=== PATIENT | male | born 1940 | race African-American/Black ===

== ENCOUNTER 2024-01-14 20:46 | Inpatient (IN) | payer MEDICARE, OTHER ==
[~2024-01-14] VITALS: Ht 175.3 cm; Wt 83.9 kg
[2024-01-14 22:13] LABS: BASOPHILS # (AUTO) 0.1 K/UL (0.0-0.2); BASOPHILS % (AUTO) 0.9 % (0.0-2.0); EOSINOPHILS # (AUTO) 0.2 K/uL (0.0-0.7); EOSINOPHILS % (AUTO) 3.2 % (0.0-7.0); HEMATOCRIT 41.6 % (36.7-47.1); HEMOGLOBIN 13.1 g/dL (12.5-16.3); LYMPHOCYTES # (AUTO) 1.7 K/uL (0.8-4.8); LYMPHOCYTES % (AUTO) 25.2 % (20.5-51.5); MEAN CORPUSCULAR HEMOGLOBIN 26.7 uug (23.8-33.4); MEAN CORPUSCULAR HGB CONC 32 g/dL (32.5-36.3); MEAN CORPUSCULAR VOLUME 84.8 fL (73.0-96.2); MONOCYTES # (AUTO) 0.7 K/uL (0.1-1.30); MONOCYTES % (AUTO) 9.7 % (0.0-11.0); NEUTROPHILS # (AUTO) 4.2 K/uL (1.8-8.9); PLATELET COUNT (AUTO) 233 K/uL (152-348); RED CELL DISTRIBUTION WIDTH 16.6 % (12.1-16.2); WHITE BLOOD COUNT (AUTO) 6.9 K/uL (3.6-10.2)
[2024-01-14 22:18] LABS: DIFFERENTIAL COMMENT 1
[2024-01-14 22:23] LABS: AMMONIA 26 umol/L (11-32)
[2024-01-14] MEDS: IV NORMAL SALINE 500 ML BAG IV ONE (22:26)
[2024-01-14 22:27] LABS: ALBUMIN 3.3 g/dL (3.4-5.0); BILIRUBIN,DIRECT 0.1 mg/dL (0.0-0.2); CALCIUM 10.2 mg/dL (8.5-10.1); CARBON DIOXIDE 23 mmol/L (21-32); CHLORIDE 103 mmol/L (98-107); CREATININE 1.1 mg/dL (0.6-1.3); ETHANOL < 3 MG/DL (0-10); GLUCOSE 173 mg/dL (74-106); POTASSIUM 4.7 mmol/L (3.5-5.1); SODIUM SERUM 138 mmol/L (136-145); UREA NITROGEN, BLOOD 13 mg/dL (7-18)
[2024-01-14] MEDS ORDERED: CYAN-51 PO (22:27)
[2024-01-14] MEDS ORDERED: TICA60TA PO (22:27)
[2024-01-14] MEDS ORDERED: ASPI81TA31 PO (22:27)
[2024-01-14] MEDS ORDERED: TAMS-3 PO (22:27)
[2024-01-14] MEDS ORDERED: PRED5DRO24 RIGHTEYE (22:27)
[2024-01-14] MEDS ORDERED: FOLI1TAB27 PO (22:27)
[2024-01-14] MEDS ORDERED: LEVE500T20 PO (22:27)
[2024-01-14] MEDS ORDERED: METF-442 PO (22:27)
[2024-01-14] MEDS ORDERED: DONE10TA44 PO (22:27)
[2024-01-14] MEDS ORDERED: ACET250T9 PO (22:27)
[2024-01-14] MEDS ORDERED: SEMA0.25 SQ (22:27)
[2024-01-14] MEDS ORDERED: CARB300C8 PO (22:27)
[2024-01-14] MEDS ORDERED: CHOL10005 PO (22:27)
[2024-01-14] MEDS ORDERED: ROSU40TA PO (22:27)
[2024-01-14] MEDS ORDERED: METO-356 PO (22:27)
[2024-01-14] MEDS ORDERED: MEMA10TA PO (22:27)
[2024-01-14 22:47] LABS: ALANINE AMINOTRANSFERASE 20 U/L (16-63); ALKALINE PHOSPHATASE 171 U/L (50-136); ASPARTATE AMINOTRANSFERASE 15 U/L (15-37); BILIRUBIN,TOTAL 0.2 mg/dL (0.2-1.0); TOTAL PROTEIN, SERUM 8.3 g/dL (6.4-8.2)
[2024-01-14 23:01] LABS: THYROID STIMULATING HORMONE 2.225 mIU/mL (0.358-3.740)
[2024-01-14 23:09] LABS: *BILIRUBIN,URIN NEGATIVE (NEGATIVE); *BLOOD, URINE NEGATIVE (NEGATIVE); *CLARITY,URINE CLEAR (CLEAR); *COLOR,URINE YELLOW (YELLOW); *KETONES,URINE NEGATIVE (NEGATIVE); *PROTEIN,URINE TRACE (NEGATIVE); LEUKOCYTE ESTERASE ,URINE NEGATIVE (NEGATIVE); NITRITE, URINE NEGATIVE (NEGATIVE); UGLUCOSE NEGATIVE (NEGATIVE)
[2024-01-14 23:23] LABS: *AMPHETAMINE, URINE NEGATIVE (NEGATIVE); *BARBITURATE, URINE NEGATIVE (NEGATIVE); *BENZODIAZEPINE, URINE NEGATIVE (NEGATIVE); *CANNABINOID, URINE NEGATIVE (NEGATIVE); *COCCAINE, URINE NEGATIVE (NEGATIVE); *OPIATE, URINE NEGATIVE (NEGATIVE); *PHENCYCLIDINE SCREEN,URINE NEGATIVE (NEGATIVE); FENTANYL, URINE NEGATIVE (NEGATIVE)
[2024-01-15 00:04] LABS: BACTERIA,URINE FEW /HPF (NONE SEEN); RBC,URINE 0-3 /HPF (0-3); SQUAMOUS EPITHELIAL CELL,UR FEW /HPF (NONE SEEN); WBC,URINE NONE SEEN /HPF (0-3)
[2024-01-15] MEDS ORDERED: REMEDY ESSENTIAL ZINC PASTE 113 GM TP PRN (01:30)
[2024-01-15] MEDS ORDERED: DEXTROSE 50% 50 ML DISP.SYRIN IV PRN (01:30)
[2024-01-15] MEDS ORDERED: ONDANSETRON 4 MG/2 ML VIAL IV PRN (01:30)
[2024-01-15] MEDS ORDERED: ACETAMINOPHEN 325 MG TABLET PO PRN (01:30)
[2024-01-15] MEDS ORDERED: MAGNESIUM HYDROXIDE 30 ML LIQUID UDC PO PRN (01:30)
[2024-01-15 02:30] VITALS: BP 148/79; TEMP 98.4; O2SAT 94
[2024-01-15 06:27] VITALS: BP 116/50; TEMP 98.4; O2SAT 96
[2024-01-15] MEDS: BLOOD SUGAR DIAGNOSTIC 1 EACH STRIP VI SCH (06:58)
[2024-01-15 08:03] LABS: BASOPHILS # (AUTO) 0.1 K/UL (0.0-0.2); BASOPHILS % (AUTO) 1.1 % (0.0-2.0); EOSINOPHILS # (AUTO) 0.2 K/uL (0.0-0.7); EOSINOPHILS % (AUTO) 3.7 % (0.0-7.0); HEMATOCRIT 39.3 % (36.7-47.1); HEMOGLOBIN 12.6 g/dL (12.5-16.3); LYMPHOCYTES # (AUTO) 1.9 K/uL (0.8-4.8); LYMPHOCYTES % (AUTO) 36.7 % (20.5-51.5); MEAN CORPUSCULAR HEMOGLOBIN 27.2 uug (23.8-33.4); MEAN CORPUSCULAR HGB CONC 32 g/dL (32.5-36.3); MEAN CORPUSCULAR VOLUME 84.6 fL (73.0-96.2); MONOCYTES # (AUTO) 0.7 K/uL (0.1-1.30); MONOCYTES % (AUTO) 12.4 % (0.0-11.0); NEUTROPHILS # (AUTO) 2.4 K/uL (1.8-8.9); NEUTROPHILS % (AUTO) 46.1 % (38.5-71.5); PLATELET COUNT (AUTO) 217 K/uL (152-348); RED BLOOD CELL COUNT(AUTO) 4.65 MIL/uL (4.06-5.63); RED CELL DISTRIBUTION WIDTH 16.5 % (12.1-16.2); WHITE BLOOD COUNT (AUTO) 5.3 K/uL (3.6-10.2)
[2024-01-15 08:25] LABS: DIFFERENTIAL COMMENT 1
[2024-01-15 08:31] LABS: MAGNESIUM 1.8 mg/dL (1.8-2.4); PHOSPHOROUS 3.2 mg/dL (2.5-4.9)
[2024-01-15 08:32] LABS: CALCIUM 9.9 mg/dL (8.5-10.1); CARBON DIOXIDE 22 mmol/L (21-32); CHLORIDE 105 mmol/L (98-107); CREATININE 1.1 mg/dL (0.6-1.3); GLUCOSE 180 mg/dL (74-106); POTASSIUM 3.6 mmol/L (3.5-5.1); SODIUM SERUM 138 mmol/L (136-145); UREA NITROGEN, BLOOD 13 mg/dL (7-18)
[2024-01-15] MEDS: CYANOCOBALAMIN 1,000 MCG TABLET PO SCH (08:50)
[2024-01-15] MEDS: MEMANTINE HCL 5 MG TABLET PO SCH (08:50)
[2024-01-15] MEDS: METOPROLOL SUCCINATE XL 25 MG TAB.SR.24H PO SCH (08:50)
[2024-01-15] MEDS: ASPIRIN 81 MG TAB.CHEW PO SCH (08:50)
[2024-01-15] MEDS: CHOLECALCIFEROL 1,000 UNIT TABLET PO SCH (08:50)
[2024-01-15] MEDS ORDERED: TAMSULOSIN HCL 0.4 MG CAP.SR.24H PO SCH (09:00)
[2024-01-15] MEDS ORDERED: EYE OP SCH (09:00)
[2024-01-15] MEDS ORDERED: FOLIC ACID 1 MG TABLET PO SCH (09:00)
[2024-01-15] MEDS ORDERED: CARBAMAZEPINE 300 MG PO SCH (09:00)
[2024-01-15] MEDS ORDERED: MEMANTINE HCL 10 MG TABLET PO SCH (09:00)
[2024-01-15] MEDS ORDERED: PREDNISOLONE ACET 1% OP SCH (09:00)
[2024-01-15] MEDS ORDERED: TICAGRELOR 60 MG TABLET PO SCH ×2 (09:00)
[2024-01-15] MEDS ORDERED: ACETAzolamide 250 MG TABLET PO SCH (09:00)
[2024-01-15] MEDS ORDERED: levETIRAcetam 500 MG TABLET PO SCH (09:00)
[2024-01-15] MEDS: FOLIC ACID 1 MG TABLET PO SCH (11:38)
[2024-01-15 11:54] VITALS: BP 129/62; TEMP 97.9; O2SAT 99
[2024-01-15] MEDS: ACETAzolamide 250 MG TABLET PO SCH (12:40)
[2024-01-15] MEDS: levETIRAcetam 500 MG TABLET PO SCH (12:41)
[2024-01-15] MEDS: INSULIN REGULAR, HUMAN 1000 UNIT/10 ML VIAL SQ PRN (12:56)
[2024-01-15 15:54] VITALS: BP 119/72; TEMP 97.7; O2SAT 99
[2024-01-15] MEDS: BRILINTA 60 MG PO SCH (17:53)
[2024-01-15] MEDS: prednisoLONE ACET 1% OPHT DROP 5 ML BOTTLE RIGHTEYE SCH (17:54)
[2024-01-15] MEDS: CARBAMAZEPINE 300 MG PO SCH (17:54)
[2024-01-15 21:00] VITALS: TEMP 97.6
[2024-01-15] MEDS: DONEPEZIL 10 MG TABLET PO SCH (22:34)
[2024-01-15] MEDS: ATORVASTATIN 40 MG TABLET PO SCH (22:34)
[2024-01-15] MEDS: TAMSULOSIN HCL 0.4 MG CAP.SR.24H PO SCH (22:34)
[2024-01-16 04:00] VITALS: TEMP 98
[2024-01-16 07:55] LABS: BASOPHILS # (AUTO) 0.1 K/UL (0.0-0.2); BASOPHILS % (AUTO) 0.9 % (0.0-2.0); EOSINOPHILS # (AUTO) 0.2 K/uL (0.0-0.7); EOSINOPHILS % (AUTO) 3.9 % (0.0-7.0); HEMATOCRIT 40.5 % (36.7-47.1); LYMPHOCYTES # (AUTO) 1.9 K/uL (0.8-4.8); LYMPHOCYTES % (AUTO) 34.3 % (20.5-51.5); MEAN CORPUSCULAR HGB CONC 32 g/dL (32.5-36.3); MEAN CORPUSCULAR VOLUME 83.9 fL (73.0-96.2); MONOCYTES # (AUTO) 0.8 K/uL (0.1-1.30); MONOCYTES % (AUTO) 13.5 % (0.0-11.0); NEUTROPHILS # (AUTO) 2.6 K/uL (1.8-8.9); NEUTROPHILS % (AUTO) 47.4 % (38.5-71.5); PLATELET COUNT (AUTO) 230 K/uL (152-348); RED BLOOD CELL COUNT(AUTO) 4.82 MIL/uL (4.06-5.63); RED CELL DISTRIBUTION WIDTH 16.2 % (12.1-16.2); WHITE BLOOD COUNT (AUTO) 5.6 K/uL (3.6-10.2)
[2024-01-16 08:04] LABS: DIFFERENTIAL COMMENT 1
[2024-01-16 08:14] LABS: ALANINE AMINOTRANSFERASE 17 U/L (16-63); ALKALINE PHOSPHATASE 169 U/L (50-136); ASPARTATE AMINOTRANSFERASE < 5 U/L (15-37); BILIRUBIN,TOTAL 0.5 mg/dL (0.2-1.0); CALCIUM 9.8 mg/dL (8.5-10.1); CARBON DIOXIDE 21 mmol/L (21-32); CHLORIDE 103 mmol/L (98-107); CREATININE 1.1 mg/dL (0.6-1.3); GLUCOSE 166 mg/dL (74-106); MAGNESIUM 1.8 mg/dL (1.8-2.4); POTASSIUM 3.9 mmol/L (3.5-5.1); SODIUM SERUM 136 mmol/L (136-145); UREA NITROGEN, BLOOD 16 mg/dL (7-18)
[2024-01-16 08:34] LABS: IRON, SERUM 75 ug/dL (50-175)
[2024-01-16 09:34] LABS: CHOLESTEROL 116 mg/dL (<200); HDL CHOLESTEROL 46 mg/dL (40-60); TRIGLYCERIDES 106 MG/DL (30-150)
[2024-01-16 10:57] VITALS: BP 114/76; TEMP 97.6; O2SAT 96
[2024-01-16 16:15] VITALS: BP 119/58; TEMP 97.6; O2SAT 99
[2024-01-16] MEDS ORDERED: ASPI-1101 PO (16:28)
[2024-01-16] MEDS ORDERED: TAMS-3 PO (16:28)
[2024-01-16] MEDS ORDERED: THIA100T74 PO (16:28)
[2024-01-16] MEDS ORDERED: ATOR20TA PO (16:28)
[2024-01-16] MEDS ORDERED: LEVE500T9 PO (16:28)
[2024-01-17] MEDS ORDERED: ATOR80TA PO (10:05)
[2024-01-17] MEDS ORDERED: ACET325T53 PO (10:05)
[2024-01-17] MEDS ORDERED: BLOO-360 VI (10:05)
[2024-01-17] MEDS ORDERED: CYAN100096 PO (10:19)
[2024-01-17] MEDS ORDERED: FOLI1TAB94 PO (10:19)
[2024-01-17] MEDS ORDERED: MAGN400O6 PO (10:19)
[2024-01-17] MEDS ORDERED: DEXT50DI8 IV (10:19)
[2024-01-17] MEDS ORDERED: INSU100V28 SQ (10:19)
[2024-01-17] MEDS ORDERED: ONDA4VIA52 IV (10:19)
== END 2024-01-16 18:30 | DRG 69 ==
LOC: ER 20:48 → MEDSURG3 01-15 01:00
PROVIDERS: ATTEND Internal Medicine
DX: G45.9 Transient cerebral ischemic attack, unspecified (principal); J96.01 Acute respiratory failure with hypoxia; G93.49 Other encephalopathy; F01.518 Vascular dementia, unspecified severity, with other behavioral disturbance; D68.59 Other primary thrombophilia; E86.0 Dehydration; G40.909 Epilepsy, unspecified, not intractable, without status epilepticus; I10 Essential (primary) hypertension; I25.2 Old myocardial infarction; I25.10 Atherosclerotic heart disease of native coronary artery without angina pectoris; N40.0 Benign prostatic hyperplasia without lower urinary tract symptoms; M15.9 Polyosteoarthritis, unspecified; E11.65 Type 2 diabetes mellitus with hyperglycemia; Z79.84 Long term (current) use of oral hypoglycemic drugs; Z74.09 Other reduced mobility; Z79.899 Other long term (current) drug therapy; E66.9 Obesity, unspecified; Z68.27 Body mass index [BMI] 27.0-27.9, adult; I71.40 Abdominal aortic aneurysm, without rupture, unspecified; E11.51 Type 2 diabetes mellitus with diabetic peripheral angiopathy without gangrene; E83.52 Hypercalcemia; E88.09 Other disorders of plasma-protein metabolism, not elsewhere classified; E78.5 Hyperlipidemia, unspecified; Z87.448 Personal history of other diseases of urinary system; Z87.891 Personal history of nicotine dependence; J44.9 Chronic obstructive pulmonary disease, unspecified; Z86.73 Personal history of transient ischemic attack (TIA), and cerebral infarction without residual deficits
CPT/HCPCS: 36415; 70450; 71045; 82652; 83550; 83735; 84100; 84443; 85025; 85730; 87040; 93005; A4606; A4663; G0378; G0480; J1815; J2650; J7040; J8499

== ENCOUNTER 2024-01-16 20:04 | Inpatient (IN) | payer MEDICARE, OTHER ==
[~2024-01-16] VITALS: Ht 175.3 cm; Wt 83.9 kg
[~2024-01-16 20:04] MED LIST: ACET250T9 PO; ASPI-1101 PO; ASPI81TA31 PO; ATOR20TA PO; CARB300C8 PO; CHOL10005 PO; CYAN-51 PO; DONE10TA44 PO; FOLI1TAB27 PO; LEVE500T20 PO; LEVE500T9 PO; MEMA10TA PO; METF-442 PO; METO-356 PO; PRED5DRO24 RIGHTEYE; ROSU40TA PO; SEMA0.25 SQ; TAMS-3 PO; THIA100T74 PO; TICA60TA PO
[2024-01-17] MEDS ORDERED: REMEDY ESSENTIAL ZINC PASTE 113 GM TOP PRN
[2024-01-17 06:00] VITALS: BP 112/66; TEMP 98; O2SAT 95
[2024-01-17] MEDS ORDERED: BLOO-360 VI (10:05)
[2024-01-17] MEDS ORDERED: ACET325T53 PO (10:05)
[2024-01-17] MEDS ORDERED: ATOR80TA PO (10:05)
[2024-01-17] MEDS ORDERED: MAGN400O6 PO (10:19)
[2024-01-17] MEDS ORDERED: ONDA4VIA52 IV (10:19)
[2024-01-17] MEDS ORDERED: CYAN100096 PO (10:19)
[2024-01-17] MEDS ORDERED: DEXT50DI8 IV (10:19)
[2024-01-17] MEDS ORDERED: INSU100V28 SQ (10:19)
[2024-01-17] MEDS ORDERED: FOLI1TAB94 PO (10:19)
[2024-01-17 16:37] VITALS: BP 104/72; TEMP 97.8; O2SAT 97
[2024-01-17 20:19] VITALS: BP 115/81; TEMP 97.8; O2SAT 98
[2024-01-17] MEDS: TAMSULOSIN HCL 0.4 MG CAP.SR.24H PO SCH (22:12)
[2024-01-17] MEDS: levETIRAcetam 500 MG TABLET PO SCH (22:13)
[2024-01-17] MEDS: DONEPEZIL 10 MG TABLET PO SCH (22:13)
[2024-01-18 05:30] VITALS: BP 126/77; TEMP 97.6; O2SAT 95
[2024-01-18] MEDS ORDERED: TICAGRELOR 60 MG TABLET PO SCH (09:00)
[2024-01-18] MEDS: METOPROLOL SUCCINATE XL 25 MG TAB.SR.24H PO SCH (09:05)
[2024-01-18] MEDS: CARBAMAZEPINE 200 MG TABLET PO SCH (09:05)
[2024-01-18] MEDS: CHOLECALCIFEROL 1,000 UNIT TABLET PO SCH (09:06)
[2024-01-18] MEDS: ASPIRIN EC 81 MG TABLET.DR PO SCH (09:06)
[2024-01-18] MEDS: ACETAzolamide 250 MG TABLET PO SCH (09:06)
[2024-01-18] MEDS: MEMANTINE HCL 10 MG TABLET PO SCH (09:06)
[2024-01-18] MEDS: BRILINTA 60 MG PO SCH (09:06)
[2024-01-18 16:11] VITALS: BP 127/98; TEMP 97.7; O2SAT 96
[2024-01-18] MEDS: CARBAMAZEPINE 300 MG PO SCH (16:53)
[2024-01-18] MEDS ORDERED: CARBAMAZEPINE 300 MG PO SCH (17:00)
[2024-01-18 20:54] VITALS: BP 126/82; TEMP 97.9; O2SAT 95
[2024-01-19 08:50] VITALS: BP 131/86; TEMP 97.9; O2SAT 86; O2SAT 96
[2024-01-19 15:43] VITALS: BP 101/63; TEMP 97.8; O2SAT 95
[2024-01-19 21:06] VITALS: BP 123/65; TEMP 97.8; O2SAT 97
[2024-01-20 05:51] VITALS: BP 102/67; TEMP 97.9; O2SAT 98
[2024-01-20 15:15] VITALS: BP 100/69; TEMP 98.4; O2SAT 99
[2024-01-20] MEDS: ACETAMINOPHEN 325 MG TABLET PO PRN (15:18)
[2024-01-20 20:36] VITALS: BP 108/60; TEMP 97.7; O2SAT 98
[2024-01-21 06:00] VITALS: BP 114/82; TEMP 97.7; O2SAT 94
[2024-01-21] MEDS: BLOOD SUGAR DIAGNOSTIC 1 EACH STRIP VI ONE (06:50)
[2024-01-21] MEDS ORDERED: METF-440 PO (10:53)
[2024-01-21] MEDS: METFORMIN HCL 500 MG TABLET PO SCH (11:17)
[2024-01-21 14:58] VITALS: BP 109/68; TEMP 97.5; O2SAT 92
[2024-01-21 20:39] VITALS: BP 107/63; TEMP 97.4; O2SAT 94
[2024-01-22 05:44] VITALS: BP 127/65; TEMP 97.6; O2SAT 97
[2024-01-22 15:45] VITALS: BP 117/78; TEMP 97.4; O2SAT 95
[2024-01-22 20:00] VITALS: BP 108/67; TEMP 98.5; O2SAT 96
[2024-01-23 04:00] VITALS: BP 100/47; TEMP 98.1; O2SAT 84
[2024-01-23 15:18] VITALS: BP 110/77; TEMP 97.7; O2SAT 95
[2024-01-24 07:49] LABS: CALCIUM 9.8 mg/dL (8.5-10.1); CARBON DIOXIDE 20 mmol/L (21-32); CHLORIDE 106 mmol/L (98-107); CREATININE 1.2 mg/dL (0.6-1.3); GLUCOSE 161 mg/dL (74-106); MAGNESIUM 1.7 mg/dL (1.8-2.4); POTASSIUM 3.6 mmol/L (3.5-5.1); SODIUM SERUM 141 mmol/L (136-145); UREA NITROGEN, BLOOD 17 mg/dL (7-18)
[2024-01-24] MEDS: MAGNESIUM OXIDE 400 MG TABLET PO ONE (10:44)
[2024-01-24 20:15] VITALS: BP 110/56; TEMP 98; O2SAT 96
[2024-01-25 05:51] VITALS: BP 128/74; TEMP 98; O2SAT 96
[2024-01-25 06:57] VITALS: TEMP 98
[2024-01-25 12:32] VITALS: TEMP 98
[2024-01-25 15:20] VITALS: BP 120/67; TEMP 98.5; O2SAT 96
[2024-01-26 06:07] VITALS: BP 108/85; TEMP 98; O2SAT 96
[2024-01-26 13:34] VITALS: TEMP 98
[2024-01-26 15:33] VITALS: BP 112/88; TEMP 97.7; O2SAT 95
[2024-01-27 06:40] VITALS: BP 122/66; TEMP 97.7; O2SAT 98
[2024-01-27 15:58] VITALS: BP 100/64; TEMP 97.3; O2SAT 96
[2024-01-27 20:00] VITALS: BP 110/69; TEMP 97.3; O2SAT 96
[2024-01-28 06:00] VITALS: BP 119/88; TEMP 97.7; O2SAT 93
[2024-01-28 12:00] VITALS: BP 109/82; TEMP 97; O2SAT 97
[2024-01-28 20:34] VITALS: BP 125/76; TEMP 97.4; O2SAT 99
[2024-01-29 16:00] VITALS: BP 95/61; TEMP 97.3; O2SAT 95
[2024-01-29 20:00] VITALS: BP 106/88; TEMP 97.7; O2SAT 98
[2024-01-29] MEDS ORDERED: DEXTROSE 50% 50 ML DISP.SYRIN IV PRN (21:30)
[2024-01-30 06:00] VITALS: BP 117/77; TEMP 98.4; O2SAT 97
[2024-01-30] MEDS: glipiZIDE 5 MG TABLET PO SCH (06:55)
[2024-01-30] MEDS: BLOOD SUGAR DIAGNOSTIC 1 EACH STRIP VI SCH (07:03)
[2024-01-30 08:18] LABS: BASOPHILS % (AUTO) 0.9 % (0.0-2.0); EOSINOPHILS # (AUTO) 0.2 K/uL (0.0-0.7); EOSINOPHILS % (AUTO) 4.3 % (0.0-7.0); HEMATOCRIT 41.7 % (36.7-47.1); HEMOGLOBIN 13.3 g/dL (12.5-16.3); LYMPHOCYTES # (AUTO) 1.7 K/uL (0.8-4.8); LYMPHOCYTES % (AUTO) 35.4 % (20.5-51.5); MEAN CORPUSCULAR HEMOGLOBIN 27.1 uug (23.8-33.4); MEAN CORPUSCULAR HGB CONC 32 g/dL (32.5-36.3); MONOCYTES # (AUTO) 0.4 K/uL (0.1-1.30); MONOCYTES % (AUTO) 9.2 % (0.0-11.0); NEUTROPHILS # (AUTO) 2.4 K/uL (1.8-8.9); NEUTROPHILS % (AUTO) 50.2 % (38.5-71.5); PLATELET COUNT (AUTO) 258 K/uL (152-348); RED BLOOD CELL COUNT(AUTO) 4.91 MIL/uL (4.06-5.63); RED CELL DISTRIBUTION WIDTH 16.9 % (12.1-16.2); WHITE BLOOD COUNT (AUTO) 4.9 K/uL (3.6-10.2)
[2024-01-30 08:22] LABS: DIFFERENTIAL COMMENT 1
[2024-01-30 08:30] LABS: ALANINE AMINOTRANSFERASE 26 U/L (16-63); ALBUMIN 3.1 g/dL (3.4-5.0); ALKALINE PHOSPHATASE 191 U/L (50-136); ASPARTATE AMINOTRANSFERASE 13 U/L (15-37); BILIRUBIN,TOTAL 0.3 mg/dL (0.2-1.0); CALCIUM 9.8 mg/dL (8.5-10.1); CARBON DIOXIDE 20 mmol/L (21-32); CHLORIDE 105 mmol/L (98-107); CREATININE 1.1 mg/dL (0.6-1.3); GLUCOSE 206 mg/dL (74-106); MAGNESIUM 1.6 mg/dL (1.8-2.4); PHOSPHOROUS 2.6 mg/dL (2.5-4.9); POTASSIUM 3.6 mmol/L (3.5-5.1); SODIUM SERUM 138 mmol/L (136-145); TOTAL PROTEIN, SERUM 7.7 g/dL (6.4-8.2); UREA NITROGEN, BLOOD 13 mg/dL (7-18)
[2024-01-30 09:06] VITALS: BP 117/77
[2024-01-30] MEDS: CHOLECALCIFEROL 400 UNITS TABLET PO SCH (09:07)
[2024-01-30] MEDS: INSULIN REGULAR, HUMAN 1000 UNIT/10 ML VIAL SQ PRN (09:11)
[2024-01-30] MEDS: MAGNESIUM OXIDE 400 MG TABLET PO ONE (14:44)
== END 2024-01-30 15:00 | disposition home health service (06) | DRG 947 ==
PROVIDERS: ADMIT Physical Medicine & Rehabilitation Pain Medicine; ATTEND Physical Medicine & Rehabilitation Pain Medicine
DX: R53.1 Weakness (principal); G93.41 Metabolic encephalopathy; J96.01 Acute respiratory failure with hypoxia; D68.59 Other primary thrombophilia; F01.518 Vascular dementia, unspecified severity, with other behavioral disturbance; E11.65 Type 2 diabetes mellitus with hyperglycemia; E66.9 Obesity, unspecified; Z68.27 Body mass index [BMI] 27.0-27.9, adult; E78.5 Hyperlipidemia, unspecified; G40.909 Epilepsy, unspecified, not intractable, without status epilepticus; I10 Essential (primary) hypertension; I25.10 Atherosclerotic heart disease of native coronary artery without angina pectoris; I25.2 Old myocardial infarction; Z87.891 Personal history of nicotine dependence; J44.9 Chronic obstructive pulmonary disease, unspecified; M19.90 Unspecified osteoarthritis, unspecified site; E88.09 Other disorders of plasma-protein metabolism, not elsewhere classified; G47.00 Insomnia, unspecified; I69.398 Other sequelae of cerebral infarction; N40.0 Benign prostatic hyperplasia without lower urinary tract symptoms; Z74.09 Other reduced mobility
CPT/HCPCS: 36415; 83735; 84100; 85025; A4663; J1815; J8499